=== PATIENT | female | born 1995 | race African-American/Black ===

== ENCOUNTER 2016-10-28 13:06 | Emergency (ER) | payer SELFPAY ==
[2016-10-28] MEDS ORDERED: PROMETHAZINE HCL 25 MG TABLET PO ONE (13:51)
--- NOTE | 2016-10-28 13:51 | ER Document Report ---
ED Medical Screen (RME) - General Chief Complaint: Nausea/Vomiting Stated Complaint: VOMITING,LIGHTHEADED Time seen by provider: 13:50 Mode of Arrival: Ambulatory Information source: Patient Notes: This is a 21-year-old female 0 who presents to the emergency room with intermittent nausea after eating, "motion sickness". The patient states she might be . She had vaginal bleeding 3 days ago and it only lasted for 1 day. She denies any abdominal pain. The patient does state that she had a week ago and that the "condom broke". TRAVEL OUTSIDE OF THE [place] IN LAST 30 DAYS: No - HPI Onset: Yesterday Onset/Duration: Gradual Quality of pain: No pain Severity: None Pain Level: Denies Associated Symptoms: Nausea, Vaginal bleeding. denies: Diarrhea, Sinus pain/ drainage Exacerbated by: Denies Relieved by: Denies Similar symptoms previously: No Recently seen / treated by doctor: No - Related Data Smoking: Non-smoker Frequency of alcohol use: None Drug Abuse: None Allergies/Adverse Reactions: peanut Allergy (Verified 10/28/16 13:14) Past Medical History - General Information source: Patient - Social History Cigarette use (# per day): No Chew tobacco use (# tins/day): No Frequency of alcohol use: None Drug Abuse: Marijuana Lives with: Family Family history: Reviewed & Not Pertinent - Medical History Medical History: Negative Renal/ Medical History: Denies: Hx Peritoneal Dialysis Surgical Hx: Negative Review of Systems - Review of Systems Constitutional: No symptoms reported EENT: No symptoms reported Cardiovascular: No symptoms reported Respiratory: No symptoms reported Gastrointestinal: No symptoms reported Genitourinary: No symptoms reported Female Genitourinary: See HPI Musculoskeletal: No symptoms reported Skin: No symptoms reported Hematologic/Lymphatic: No symptoms reported Neurological/Psychological: No symptoms reported Physical Exam - Vital signs Vitals: Temp Pulse Resp BP Pulse Ox 98.6 F 84 16 113/77 98 10/28/16 13:11 10/28/16 13:11 10/28/16 13:11 10/28/16 13:11 10/28/16 13:11 Notes: Physical exam: GENERAL: 2-year-old female, alert and oriented 3, no acute distress. HEAD: Atraumatic, normocephalic. EYES: Pupils equal round and reactive to light, extraocular movements intact, sclera anicteric, conjunctiva are normal. ENT: TMs normal, nares patent, oropharynx clear without exudates. Moist mucous membranes. NECK: Normal range of motion, supple LUNGS: Breath sounds clear to auscultation bilaterally and equal. No wheezes rales or rhonchi. HEART: Regular rate and rhythm without murmurs, rubs or gallops. ABDOMEN: Soft, normoactive bowel sounds. No tenderness to palpation. No guarding, no rebound. No masses appreciated. EXTREMITIES: Normal range of motion, no pitting or edema. No clubbing or cyanosis. NEUROLOGICAL: Cranial nerves II through XII grossly intact. Normal speech, normal gait. PSYCH: Normal mood, normal affect. SKIN: Warm, Dry, normal turgor, no rashes or lesions noted. Course - Re-evaluation Re-evalutation: 10/28/16 15:07 I discussed the results of the test which is negative today. I did advise the patient that she should recheck a test within a week to 2 weeks. Sometimes, the test is not positive this early on (the patient states that the "condom broke" one week ago). - Vital Signs Vital signs: Temp Pulse Resp BP Pulse Ox 98.6 F 84 16 113/77 98 10/28/16 13:11 10/28/16 13:11 10/28/16 13:11 10/28/16 13:11 10/28/16 13:11 - Laboratory Result Diagrams: 10/28/16 14:05 10/28/16 14:05 Laboratory results interpreted by me: 10/28/16 14:05 Hgb 11.9 L Hct 35.6 L RDW 14.1 H Eosinophils % 12.2 H Absolute Eosinophils 0.7 H Doctor's Discharge - Discharge Clinical Impression: vaginal bleeding, nausea Condition: Stable Disposition: HOME, SELF-CARE Additional Instructions: As we discussed, I would recheck a test in a week to 2 weeks. Return to the ER for any abdominal pain or worsening nausea. Take the Phenergan for nausea. Follow-up with your primary care doctor Prescriptions: Promethazine HCl [Phenergan 25 mg Tablet] 25 mg PO Q6H PRN #15 tablet PRN Reason: Forms: Return to Work
[2016-10-28 14:20] LABS: ABSOLUTE EOSINOPHILS # (AUTO) 0.7 10^3/uL (0.0-0.6); ABSOLUTE LYMPHOCYTES (AUTO) 1.6 10^3/uL (0.5-4.7); ABSOLUTE MONOCYTES (AUTO) 0.5 10^3/uL (0.1-1.4); ABSOLUTE NEUT (AUTO) 2.7 10^3/uL (1.7-8.2); BASOPHILS % (AUTO) 0.3 % (0-2); EOSINOPHILS % (AUTO) 12.2 % (0-6); HEMATOCRIT 35.6 % (36.0-47.0); HEMOGLOBIN 11.9 g/dL (12.0-15.5); HGB HCT DIFFERENCE 0.1; LYMPHOCYTES % (AUTO) 29.9 % (13-45); MEAN CORPUSCULAR HEMOGLOBIN 29.3 pg (27.0-33.4); MEAN CORPUSCULAR HGB CONC 33.4 g/dL (32.0-36.0); MEAN CORPUSCULAR VOLUME 88 fl (80-97); MONOCYTES % (AUTO) 8.2 % (3-13); RED BLOOD COUNT 4.06 10^6/uL (3.72-5.28); RED CELL DISTRIBUTION WIDTH 14.1 % (11.5-14.0); SEGMENTED NEUTROPHILS % (AUTO) 49.4 % (42-78); WHITE BLOOD COUNT 5.5 10^3/uL (4.0-10.5)
[2016-10-28 14:37] LABS: ANION GAP 9 (5-19); BLOOD UREA NITROGEN 10 mg/dL (7-20); CALCIUM 9.9 mg/dL (8.4-10.2); CARBON DIOXIDE 25 mmol/L (22-30); CHLORIDE 106 mmol/L (98-107); CREATININE RESULT 0.75 mg/dL (0.52-1.25); GLUCOSE 107 mg/dL (75-110); POTASSIUM 4.2 mmol/L (3.6-5.0); SODIUM 139.6 mmol/L (137-145)
[2016-10-28 15:04] VITALS: BP 136/89
== END 2016-10-28 15:06 | disposition home or self-care (01) ==
LOC: ER 13:06
DX: R11.2 Nausea with vomiting, unspecified (principal); N93.9 Abnormal uterine and vaginal bleeding, unspecified; Z32.02 Encounter for pregnancy test, result negative; Z91.010 Allergy to peanuts
CPT/HCPCS: 36415; 80048; 84702; 85025; 86900; 86901; 99284

== ENCOUNTER 2016-11-29 02:06 | Emergency (ER) | payer MEDICAID ==
[2016-11-29 04:31] LABS: APPEARANCE,URINE SLIGHTLY-CLOUDY; BILIRUBIN,URINE NEGATIVE (NEGATIVE); GLUCOSE, URINE NEGATIVE (NEGATIVE); KETONES,URINE NEGATIVE (NEGATIVE); LEUKOCYTE ESTERASE,URINE SMALL (NEGATIVE); NITRITE,URINE NEGATIVE (NEGATIVE); PROTEIN,URINE NEGATIVE (NEGATIVE); URINE SPECIFIC GRAVITY 1.028; UROBILINOGEN,URINE NEGATIVE mg/dL (<2.0)
[2016-11-29] MEDS ORDERED: SULFAMETHOXAZOLE/TRIMETHOPRIM 800-160 MG TABLET PO ONE (04:54)
--- NOTE | 2016-11-29 04:54 | ER Document Report ---
HPI - HPI Pain Level: 2 Context: abdominal cramping today at work. States when she looked at her belly there was evidence of redness without tenderness, swelling, drainage. Patient states her abdominal pain is described as intermittent cramping in the pelvic area. admits to urinary frequnecy and hesitency which is new today. denies any fevers, chills , body aches, n/v/d/c, pyuria, hematuria, vaginal discharge, vaginal bleeding. LMP 6 weeks ago, sexually active female without protection. - REPRODUCTIVE LMP: 10-22-16 - DERM Skin Color: Normal Past Medical History - Social History Smoking Status: Unknown if Ever Smoked Family History: Reviewed & Not Pertinent Patient has suicidal ideation: No Patient has homicidal ideation: No Renal/ Medical History: Denies: Hx Peritoneal Dialysis Vertical Provider Document - CONSTITUTIONAL Agree With Documented VS: Yes Exam Limitations: No Limitations General Appearance: WD/WN, No Apparent Distress - INFECTION CONTROL TRAVEL OUTSIDE OF THE [place] IN LAST 30 DAYS: No - RESPIRATORY Respiratory: Breath Sounds Normal, No Respiratory Distress, Chest Non-Tender O2 Sat by Pulse Oximetry: 98 - CARDIOVASCULAR Cardiovascular: Regular Rate, Regular Rhythm, No Murmur Pulses: Normal: Radial, Dorsalis pedis - GI/ABDOMEN Gastrointestinal: Abdomen Soft, Abdomen Non-Tender, No Organomegaly, Normal Bowel Sounds - REPRODUCTIVE Notes: female exam deferred - MUSCULOSKELETAL/EXTREMETIES Musculoskeletal/Extremeties: MAEW, FROM, Non-Tender, No Edema - NEURO Level of Consciousness: Awake, Alert, Appropriate Motor/Sensory: No Motor Deficit, No Sensory Deficit - DERM Integumentary: Warm, Dry, No Rash Course - Re-evaluation Re-evalutation: 11/29/16 06:16 Patient is a 21-year-old female hemodynamic stable, no acute distress afebrile. Urinalysis negative for , evidence of urinary tract infection. Discussed with patient to send her home with antibiotics to cover for urinary tract infection of her symptoms are improved me to return to the emergency department and follow-up with her primary care physician. Otherwise benign physical exam findings do not require any additional laboratory study, imaging. - Vital Signs Vital signs: Temp Pulse Resp BP Pulse Ox 97.9 F 83 18 116/75 98 11/29/16 02:16 11/29/16 02:16 11/29/16 02:16 11/29/16 02:16 11/29/16 02:16 - Laboratory Laboratory results interpreted by me: 11/29/16 04:05 Ur Leukocyte Esterase SMALL H Discharge - Discharge Clinical Impression: UTI (urinary tract infection) Condition: Good Disposition: HOME, SELF-CARE Instructions: Trimethoprim-Sulfa ([facility]), Urinary Tract Infection ([facility]) Prescriptions: Sulfamethoxazole/Trimethoprim [Bactrim Ds Tablet] 1 each PO BID #6 tablet Referrals: PAZ PAULINO MD [ACTIVE STAFF] - Follow up as needed
[2016-11-29 05:20] VITALS: BP 111/69
== END 2016-11-29 05:19 | disposition home or self-care (01) ==
LOC: ER 02:06
DX: N39.0 Urinary tract infection, site not specified (principal); R10.9 Unspecified abdominal pain
CPT/HCPCS: 81001; 81025; 99283